=== PATIENT | female | born 1960 | race Caucasian/White ===

== ENCOUNTER → 2016-05-15 | Outpatient (CLI) | payer OTHER ==
--- NOTE | 2016-05-15 13:30 | Diagnostic Imaging Report ---
PROCEDURE: CT cervical spine without contrast. TECHNIQUE: Multiple contiguous axial images were obtained through the cervical spine without the use of intravenous contrast. Sagittal and coronal reformations were then performed. INDICATION: Neck pain. Prior cervical spine fusion. COMPARISON: None. FINDINGS: Mild anterolisthesis of C2 on C3 and C3 on C4. Alignment is otherwise unremarkable. Vertebral body heights are maintained. There are postoperative findings of anterior fusion with interbody devices at C5-C7. Hardware components appear intact. No evidence of loosening. The visualized paravertebral soft tissues are unremarkable. Osteophytic ridging results in only mild spinal canal narrowing on this noncontrast exam at C5-C6 and C6-C7. Uncovertebral and facet arthropathy result in moderate neuroforaminal narrowing on the right at C2-C3, C3-C4, and mild narrowing bilaterally at C5-C6. IMPRESSION: 1. Postoperative findings of anterior fusion with interbody devices at C5-C7. No evidence of hardware failure. 2. Spondylotic changes result in scattered neuroforaminal narrowing which is greatest on the right at C2-C3 and C3-C4 where it is moderate. 3. There is only mild spinal canal narrowing at C5-C6 and C6-C7 on this noncontrast exam. Dictated by: Dictated on workstation # [id number]
== END ==
LOC: RAD 07:38
PROVIDERS: ATTEND Orthopaedic Surgery Orthopaedic Surgery of the Spine
DX: Z98.1 Arthrodesis status (principal)
CPT/HCPCS: 72125

== ENCOUNTER → 2016-05-26 | Outpatient (CLI) | payer OTHER ==
--- NOTE | 2016-06-01 17:36 | Diagnostic Imaging Report ---
EXAMINATION: Bilateral digital screening mammogram with CAD. The current study was also evaluated with a Computer Aided Detection (CAD) system. INDICATION: Screening. No current complaints stated on the questionnaire. COMPARISON: 10/19/2008. FINDINGS: The breasts are composed of heterogeneously dense parenchyma which may decrease mammographic sensitivity. There is an 8 mm oval asymmetry in the upper aspect of the right MLO view. The left breast demonstrates no definite change. The comparison is remote and some parenchyma changes are seen in addition to dense parenchyma decreasing mammographic sensitivity. IMPRESSION: Focal compression view of the upper right breast asymmetry and bilateral breast ultrasound evaluation recommended. ACR BI-RADS Category 0: Incomplete. (Needs additional imaging evaluation). Result letter will be mailed to the patient. Note: At least 10% of breast cancer is not imaged by mammography. Dictated by: Dictated on workstation # [id number]
== END ==
LOC: RAD 09:25
PROVIDERS: ATTEND Nurse Practitioner
DX: Z12.31 Encounter for screening mammogram for malignant neoplasm of breast (principal)
CPT/HCPCS: 77067

== ENCOUNTER → 2016-06-16 | Outpatient (CLI) | payer OTHER ==
--- NOTE | 2016-06-16 17:45 | Diagnostic Imaging Report ---
EXAMINATION: Right breast digital diagnostic mammogram with CAD. The current study was also evaluated with a Computer Aided Detection (CAD) system. INDICATION: Upper right breast asymmetry. FINDINGS: The breasts are composed of heterogeneously dense parenchyma which may decrease mammographic sensitivity. There are benign-appearing calcifications seen. The asymmetry seen previously was evaluated with focal compression view which demonstrates background dense parenchyma with no definitive underlying lesion. IMPRESSION: Dense background parenchyma with no definitive lesion confirmed on focal compression view. Ultrasound evaluation pending. ACR BI-RADS Category 0: Incomplete. (Needs additional imaging evaluation). Result letter will be mailed to the patient. Note: At least 10% of breast cancer is not imaged by mammography. Dictated by: Dictated on workstation # [id number]
--- NOTE | 2016-06-16 17:56 | Diagnostic Imaging Report ---
EXAMINATION: Bilateral breast ultrasound. INDICATION: Right breast asymmetry. Dense breasts. FINDINGS: The four quadrants and retroareolar region of each breast was scanned with no focal abnormality. IMPRESSION: Negative study. The asymmetry seen on mammography is probably summation effect of parenchyma. Annual screening mammograms are recommended. ACR BI-RADS Category 1: Negative. Result letter will be mailed to the patient. Note: At least 10% of breast cancer is not imaged by mammography. Dictated by: Dictated on workstation # [id number]
== END ==
LOC: RAD 09:11
PROVIDERS: ATTEND Nurse Practitioner
DX: R92.2 Inconclusive mammogram (principal)

== ENCOUNTER → 2017-02-28 | Outpatient (CLI) | payer OTHER ==
--- NOTE | 2017-02-28 18:19 | Diagnostic Imaging Report ---
EXAMINATION: MRI of the lumbar spine without contrast 02/28/2017. TECHNIQUE: Multiplanar, multisequence MRI of the lumbar spine was performed without contrast. INDICATION: No known injuries. History of arthritis, neck pain and back pain, bilateral arm and leg pain off and on. COMPARISONS: None. FINDINGS: Normal height and alignment of the vertebral bodies noted with the tip of the conus unremarkable in appearance and location. At the T12-L1 level, there is bilateral facet hypertrophy with no central or neural foraminal stenosis. L1-L2 is unremarkable other than minimal facet hypertrophy as well. At L2-L3, there is bilateral facet and ligamentum flavum hypertrophy with disc desiccation. There is no significant bulging disc material. The neural foramina appear to be patent. At L3-L4, there is disc desiccation. Bilateral facet and ligamentum flavum hypertrophy noted. There is mild left paracentral bulging disc material extending laterally. However, no significant central or neural foraminal stenosis is appreciated. Mild left-sided neural foraminal narrowing is seen. At L4-L5, there is intervertebral disc space narrowing, disc desiccation, and a broad-based bulging disc containing an annular tear. Bilateral facet and ligamentum flavum hypertrophy noted. There is minimal fluid in the left facet joint. There is mild central narrowing. Mild bilateral neural foraminal narrowing is also seen. At L5-S1, there is disc desiccation with intervertebral disc space narrowing. A right paracentral disc protrusion is noted. There is bilateral facet hypertrophy. No central stenosis is seen. The neural foramina are patent. The visualized intra-abdominal structures are unremarkable. IMPRESSION: 1. Multilevel degenerative findings as described above. Dictated by: Dictated on workstation # [id number]
--- NOTE | 2017-02-28 18:48 | Diagnostic Imaging Report ---
PROCEDURE: MR imaging cervical spine without contrast. TECHNIQUE: Multiplanar, multisequence MR imaging of the cervical spine was performed without contrast. INDICATION: Neck pain and bilateral lower extremity weakness. COMPARISON: None. FINDINGS: There has been prior anterior fusion of C5-C6 and C6-C7, which appears stable. Degenerative disc disease is seen throughout with facet joint arthropathy. The course and caliber of the cervical cord is normal. C2-C3: Disc space narrowing with facet joint arthropathy is seen. There is a mild right foraminal stenosis. The left neural foramen and central canal are normal. C3-C4, C4-C5: Disc space narrowing with small osteophyte disc complexes is present. There is facet joint hypertrophy. Trace bilateral foraminal stenosis is seen at both levels. There is no central canal stenosis. C5-C6, C6-C7: No recurrent central canal stenosis is identified. There is facet joint arthropathy. There is moderate foraminal stenosis at the C5-C6 level. C7-T1: There is disc space narrowing with facet joint hypertrophy. No foraminal or central canal stenosis is seen. IMPRESSION: 1. Stable appearing anterior fusion at C5-C6 and C6-C7 without recurrent central canal stenosis. 2. Above-mentioned foraminal stenosis primarily due to facet joint arthropathy. 3. Normal cord signal. Dictated by: Dictated on workstation # [id number]
== END ==
LOC: RAD 16:59
PROVIDERS: ATTEND Physician Assistant
DX: M51.37 Other intervertebral disc degeneration, lumbosacral region (principal); M51.27 Other intervertebral disc displacement, lumbosacral region; M48.02 Spinal stenosis, cervical region; M46.82 Other specified inflammatory spondylopathies, cervical region; M89.38 Hypertrophy of bone, other site; M48.061 Spinal stenosis, lumbar region without neurogenic claudication; R53.1 Weakness; Z98.1 Arthrodesis status
CPT/HCPCS: 72141; 72148

== ENCOUNTER → 2017-03-01 | Outpatient (CLI) | payer OTHER ==
--- NOTE | 2017-03-01 11:04 | Diagnostic Imaging Report ---
EXAMINATION: DEXA scan. INDICATION: Osteopenia. TECHNIQUE: Bone mineral density estimated based on dual energy radiography over the lumbar spine and femoral necks, was performed. FINDINGS: The lumbar spine T-score is 1.2. T score in the femoral neck on the left is 0.3 and on the right side is 0.8. IMPRESSION: Bone mineral density measurements are within normal limits. Dictated by: Dictated on workstation # [id number]
== END ==
LOC: RAD 08:34
PROVIDERS: ATTEND Internal Medicine Endocrinology, Diabetes & Metabolism
DX: M85.80 Other specified disorders of bone density and structure, unspecified site (principal)
CPT/HCPCS: 77080

== ENCOUNTER 2017-07-16 13:38 | Outpatient (RCR) | payer OTHER | END 2017-10-14 | disposition home or self-care (01) | LOC: CARD 13:38 | PROVIDERS: ATTEND Internal Medicine Cardiovascular Disease | DX: R00.2 Palpitations (principal); I10 Essential (primary) hypertension; Z82.49 Family history of ischemic heart disease and other diseases of the circulatory system | CPT/HCPCS: 93225; 93226 ==

== ENCOUNTER → 2017-07-16 | Outpatient (CLI) | payer OTHER | LOC: CARD 13:36 | PROVIDERS: ATTEND Internal Medicine Cardiovascular Disease | DX: R00.2 Palpitations (principal); I10 Essential (primary) hypertension; Z82.49 Family history of ischemic heart disease and other diseases of the circulatory system | CPT/HCPCS: 93306 ==

== ENCOUNTER → 2018-07-22 | Outpatient (CLI) | payer OTHER ==
[2018-07-22 17:45] LABS: INR 0.9 (0.8-1.4); PROTHROMBIN TIME PATIENT 12.7 SEC (12.2-14.7)
== END ==
LOC: LABNPT 17:29
PROVIDERS: ATTEND Surgery
DX: Z01.812 Encounter for preprocedural laboratory examination (principal)
CPT/HCPCS: 85610